=== PATIENT | female | born 1975 | race Hispanic/Latino ===

== ENCOUNTER 2018-09-25 21:06 | Emergency (ER) | payer OTHER ==
[2018-09-25 22:32] VITALS: BP 158/86
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
== END 2018-09-26 01:05 | disposition home or self-care (01) ==
LOC: ED 21:06
DX: S20.212A Contusion of left front wall of thorax, initial encounter (principal); S16.1XXA Strain of muscle, fascia and tendon at neck level, initial encounter; Z90.49 Acquired absence of other specified parts of digestive tract; Z79.899 Other long term (current) drug therapy; Z88.0 Allergy status to penicillin; V89.2XXA Person injured in unspecified motor-vehicle accident, traffic, initial encounter; Y93.89 Activity, other specified; Y92.488 Other paved roadways as the place of occurrence of the external cause; Y99.8 Other external cause status
CPT/HCPCS: 99284

== ENCOUNTER 2021-01-31 11:57 | Emergency (ER) | payer SELFPAY ==
[2021-01-31 12:32] VITALS: BP 150/86
--- NOTE | 2021-01-31 12:37 | Emergency Department Report ---
ED Abdominal Pain HPI - General Chief Complaint: Abdominal Pain Stated Complaint: LT SIDE PAIN PUI?: No Time Seen by Provider: 01/31/21 12:36 Source: patient Mode of arrival: Ambulatory Limitations: No Limitations - History of Present Illness Initial Comments: 45 yo comes to ER with very localized LUQ pain. No n/v/d/c. She does have IBS and is taking her 3 home meds. She called PCP who told her to take a laxative. When she did not get better she came to ER. She reports normal stooling. Pt is ambulatory to the er and in nad. Complaint: abdominal pain -: Gradual Location: LUQ Radiation: none Migration to: no migration Severity: mild Quality: cramping, stabbing Consistency: intermittent Improves With: other (standing) Worsens With: other (lying down) Associated Symptoms: denies other symptoms - Related Data Previous Rx's Medication Instructions Recorded Last Taken Type Naproxen [Naprosyn] 500 mg PO BID #20 tablet 09/26/18 Unknown Rx methOCARBAMOL [Robaxin TAB] 500 mg PO Q8HR PRN #20 tablet 09/26/18 Unknown Rx Allergies Allergy/AdvReac Type Severity Reaction Status Date / Time Penicillins Allergy Unknown Verified 09/25/18 22:24 ED Review of Systems ROS: Stated complaint: LT SIDE PAIN Other details as noted in HPI Comment: All other systems reviewed and negative ED Past Medical Hx - Past Medical History Previous Medical History?: Yes - Surgical History Past Surgical History?: Yes Hx Cholecystectomy: Yes (ruptured Gall Bladder) - Family History Family history: no significant - Social History Smoking Status: Never Smoker Substance Use Type: None - Medications Home Medications: Home Medications Medication Instructions Recorded Confirmed Last Taken Type Naproxen [Naprosyn] 500 mg PO BID #20 tablet 09/26/18 Unknown Rx methOCARBAMOL [Robaxin TAB] 500 mg PO Q8HR PRN #20 tablet 09/26/18 Unknown Rx ED Physical Exam - General Limitations: No Limitations General appearance: alert, in no apparent distress - Head Head exam: Present: atraumatic, normocephalic - Eye Eye exam: Present: normal appearance - ENT ENT exam: Present: mucous membranes moist - Neck Neck exam: Present: normal inspection - Respiratory Respiratory exam: Present: normal lung sounds bilaterally. Absent: respiratory distress - Cardiovascular Cardiovascular Exam: Present: regular rate, normal rhythm. Absent: systolic murmur, diastolic murmur, rubs, gallop - GI/Abdominal GI/Abdominal exam: Present: soft, normal bowel sounds - Extremities Exam Extremities exam: Present: normal inspection - Back Exam Back exam: Present: normal inspection - Neurological Exam Neurological exam: Present: alert, oriented X3 - Psychiatric Psychiatric exam: Present: normal affect, normal mood - Skin Skin exam: Present: warm, dry, intact, normal color. Absent: rash ED Course Vital Signs 01/31/21 12:30 Temperature 98.7 F Pulse Rate 96 H Respiratory 16 Rate Blood Pressure 150/86 [Left] O2 Sat by Pulse 96 Oximetry ED Medical Decision Making - Lab Data Result diagrams: 01/31/21 13:26 01/31/21 13:26 - Radiology Data Radiology results: report reviewed, image reviewed nap - Medical Decision Making Lab Results 01/31/21 01/31/21 01/31/21 Range/Units 13:26 13:26 13:26 WBC 7.3 (4.5-11.0) K/mm3 RBC 5.04 H (3.65-5.03) M/mm3 Hgb 14.6 H (10.1-14.3) gm/dl Hct 43.7 H (30.3-42.9) % MCV 87 (79-97) fl MCH 29 (28-32) pg MCHC 33 (30-34) % RDW 13.9 (13.2-15.2) % Plt Count 260 (140-440) K/mm3 Lymph % (Auto) 23.4 (13.4-35.0) % [place] % (Auto) 7.7 H (0.0-7.3) % Eos % (Auto) 0.8 (0.0-4.3) % Baso % (Auto) 0.8 (0.0-1.8) % Lymph # (Auto) 1.7 (1.2-5.4) K/mm3 [place] # (Auto) 0.6 (0.0-0.8) K/mm3 Eos # (Auto) 0.1 (0.0-0.4) K/mm3 Baso # (Auto) 0.1 (0.0-0.1) K/mm3 Seg Neutrophils % 67.3 (40.0-70.0) % Seg Neutrophils # 4.9 (1.8-7.7) K/mm3 Sodium 140 (137-145) mmol/L Potassium 4.2 (3.6-5.0) mmol/L Chloride 102.8 (98-107) mmol/L Carbon Dioxide 24 (22-30) mmol/L Anion Gap 17 mmol/L BUN 10 (7-17) mg/dL Creatinine 0.7 (0.6-1.2) mg/dL Estimated GFR > 60 ml/min BUN/Creatinine Ratio 14 % Glucose 100 (65-100) mg/dL Calcium 9.6 (8.4-10.2) mg/dL Total Bilirubin 0.60 (0.1-1.2) mg/dL AST 28 (5-40) units/L ALT 29 (7-56) units/L Alkaline Phosphatase 75 (35-129) units/L Total Protein 7.1 (6.3-8.2) g/dL Albumin 4.2 (3.9-5) g/dL Albumin/Globulin Ratio 1.4 % Lipase 12 L (13-60) units/L HCG, Qual Negative (Negative) Vital Signs (72 hours) 01/31/21 12:30 Temperature 98.7 F Pulse Rate 96 H Respiratory 16 Rate Blood Pressure 150/86 [Left] O2 Sat by Pulse 96 Oximetry labs noted GI cocktail given with some relief xray noted with stool in rectal vault dc home with dc plan of care including recommendations for enema/ suppository and GI follow up. Pt verbalizes understanding of dc plan of care including follow up, diet, activity, hydration. - Differential Diagnosis gerd/gastritis/ibs Critical care attestation.: If time is entered above; I have spent that time in minutes in the direct care of this critically ill patient, excluding procedure time. ED Disposition Clinical Impression: Abdominal pain, IBS (irritable bowel syndrome) Disposition: HOME / SELF CARE / HOMELESS Is pt being admited?: No Does the pt Need Aspirin: No Condition: Stable Instructions: Abdominal Pain, Adult, Irritable Bowel Syndrome, Adult, Abdominal Pain (ED) Additional Instructions: follow up with GI MD diet per routine stay well hydrated Referrals: PRIMARY CARE, [Primary Care Provider] - 3-5 Days JOAQUINA JAMA MD [Staff Physician] - 3-5 Days Time of Disposition: 15:20
[2021-01-31 13:43] LABS: Basophils # (Auto) 0.1 K/mm3 (0.0-0.1); Basophils % (Auto) 0.8 % (0.0-1.8); Eosinophils # (Auto) 0.1 K/mm3 (0.0-0.4); Eosinophils % (Auto) 0.8 % (0.0-4.3); Hematocrit 43.7 % (30.3-42.9); Hemoglobin 14.6 gm/dl (10.1-14.3); Lymphocytes # (Auto) 1.7 K/mm3 (1.2-5.4); Lymphocytes % (Auto) 23.4 % (13.4-35.0); Mean Corpuscular HGB Conc 33 % (30-34); Mean Corpuscular Volume 87 fl (79-97); Monocytes # (Auto) 0.6 K/mm3 (0.0-0.8); Monocytes % (Auto) 7.7 % (0.0-7.3); Platelet Count 260 K/mm3 (140-440); Red Blood Count 5.04 M/mm3 (3.65-5.03); Red Cell Distribution Width 13.9 % (13.2-15.2)
[2021-01-31] MEDS ORDERED: ZIPRASIDONE MESYLATE 20 MG VIAL IM ONE (14:40)
[2021-01-31 15:13] LABS: Alanine Aminotransferase 29 units/L (7-56); Albumin 4.2 g/dL (3.9-5); Blood Urea Nitrogen 10 mg/dL (7-17); Calcium 9.6 mg/dL (8.4-10.2); Hemolysis Index 16
[2021-01-31 15:17] LABS: BUN/Creatinine Ratio 14
[2021-01-31] MEDS ORDERED: FAMOTIDINE 20 MG TAB PO ONE (15:20)
[2021-01-31] MEDS ORDERED: ALUM-MAG HYDROXIDE-SIMETHICONE 200-200-20MG/5ML ORAL LIQD 30 ML PO ONE (15:20)
[2021-01-31] MEDS ORDERED: LIDOCAINE VISCOUS 2% 15 ML ORAL LIQD PO ONE (15:20)
--- NOTE | 2021-01-31 15:37 | XRay Report ---
XR abd series w cxr 1V INDICATION / CLINICAL INFORMATION: abd pain: luq. COMPARISON: None available. FINDINGS: CHEST: Lungs are clear. No pleural effusion or pneumothorax. Heart size is within normal limits. No p ulmonary vasculature congestion. ABDOMEN: Cholecystectomy clips. Bowel gas pattern is nonobstructive. Moderate colonic stool burden. N o free air. No suspicious calcifications identified. BONES: No acute osseous abnormality. IMPRESSION: No acute abnormality. Moderate colonic stool burden, may reflect constipation. Signer Name: Sravan River MD Signed: 01/31/2021 3:32 PM Workstation Name: [id number]
== END 2021-01-31 15:51 | disposition home or self-care (01) ==
LOC: ED 11:57
DX: R10.12 Left upper quadrant pain (principal); K58.9 Irritable bowel syndrome, unspecified; Z88.0 Allergy status to penicillin; Z90.49 Acquired absence of other specified parts of digestive tract
CPT/HCPCS: 36415; 74022; 80053; 83690; 84703; 85025; 99283; J3486